=== PATIENT | male | born 1960 | race Caucasian/White ===

== ENCOUNTER 2018-09-07 07:49 | Observation (INO) ==
[2018-09-07] MEDS ORDERED: 0.9 % Sodium Chloride 1,000 ML IVC ONE (08:06)
[2018-09-07 08:19] LABS: Basophils # 0.1 K/mcL (0.0-0.2); Basophils % 0.8 %; Eosinophils # 0.2 K/mcL (0.0-0.6); Hematocrit 51.1 % (37.5-50.1); Hemoglobin 17.3 g/dL (12.9-16.9); Immature Granulocytes % 0.1 % (0-4); Lymphocytes # 2.1 K/mcL (0.6-4.6); Lymphocytes % 28.5 %; Mean Corpuscular HGB Conc 33.9 g/dL (31.6-35.5); Mean Corpuscular Hemoglobin 30.9 pg (28.0-33.3); Mean Corpuscular Volume 91.4 fL (83.0-100.0); Mean Platelet Volume 9.6 fL (9.4-12.4); Monocytes # 0.5 K/mcL (0.0-1.3); Monocytes % 6.9 %; Neutrophils # 4.5 K/mcL (1.6-8.9); Platelet Count 254 K/mcL (140-400); Red Blood Count 5.59 M/mcL (4.19-5.50); Red Cell Distribution Width 12.1 % (11.5-14.5); Segmented Neutrophils % 60.7 %
[2018-09-07 08:38] LABS: Troponin I < 0.03 ng/mL (< 0.04)
--- NOTE | 2018-09-07 08:42 | Emergency Department Note ---
Disposition Clinical Impression: Atrial fibrillation with RVR Disposition: Admitted As Inpatient Condition: Good Forms: ED Satisfaction Letter General Adult HPI - General Chief complaint: ED Arrhythmia/Palpitations Stated complaint: Abnormal EKG Time Seen by Provider: 09/07/18 07:59 Source: patient Mode of arrival: ambulatory Limitations: no limitations Nursing Notes Reviewed: Yes Vital Signs Reviewed: Yes - History of Present Illness HPI Narrative: Patient with a history of A. fib on sotalol but no other medications presenting to the emergency department for palpitations and shortness of breath. Patient states that his sotalol has recently not been working. He has had increasing frequency of episodes of palpitations awaken him up from sleep resolve with morning sotalol. The patient's symptoms today started at 2 AM. Patient despite trying to stay hydrated was found to be in A. fib RVR at work and referred to the emergency department. He states he has tried to get an appointment with cardiology but has been unable to until October. Patient has his sotalol with him. It is approximately 8:15 and 45 minutes early compared to his normal dose. He has been advised to go ahead and take this while we observe him. A call will be placed to cardiology to further discuss the case. Pain Scale: 0 - Related Data Previous Rx's Medication Instructions Recorded Sotalol [Betapace] 80 mg PO BID #60 tablet 08/05/17 Allergies Allergy/AdvReac Type Severity Reaction Status Date / Time No Known Allergies Allergy Verified 12/04/17 10:04 Review of Systems: CONSTITUTIONAL: No weight loss, fever, chills, weakness or fatigue. HEENT: Eyes: No visual changes. Ears, Nose, Throat: No hearing loss, difficulty talking or unable to swallow. SKIN: No rash or itching. CARDIOVASCULAR: Palpitations RESPIRATORY: Shortness of breath GASTROINTESTINAL: No anorexia, nausea, vomiting or diarrhea. No abdominal pain or blood. GENITOURINARY: No burning on urination or hematuria. NEUROLOGICAL: No headache, dizziness, syncope, paralysis, ataxia, numbness or tingling in the extremities. No change in bowel or bladder control. MUSCULOSKELETAL: No muscle pain, back pain, joint pain or stiffness. All systems ED: reviewed and negative except as stated. Review of Systems: As Per HPI Past Medical History - Past Medical History Medical history: Reports: atrial fibrillation Psychiatric history: Reports: no psych history - Social History Smoking Status: Never smoker Smokeless Tobacco Status: No Alcohol use: Reports: occasionally Drug use: Reports: none Physical Exam General: Well appearing, nontoxic, no acute distress Head: Normocephalic Atraumatic Eyes: PERRL, EOMI ENT: Airway patent, no stridor Neck: supple, no meningismus Chest: Lungs clear to auscultation bilateral Cardiac: Irregular rate and rhythm Abdomen: soft, nontender, nondistended; no guarding, rebound, or tenderness to percussion Musculoskeletal: Calves symmetric, nontender, no palpable cord Skin: No rash, normal skin tone Neuro: Alert and Oriented to person, place, and time; No focal deficit - General General appearance: alert, in no apparent distress Course - Reevaluation(s) Reevaluation #1: Heart rate did slowly improve the sotalol. On reevaluation 118 rate. Improved from 150s when he arrived. Patient continues to be relatively asymptomatic. He is very pleasant. He did walk to the bathroom and back and his heart rate has now remained in the 130s. When I did discuss his case with cardiology this did state that we could use rate control medications but no other rhythm control medications. Metoprolol 5 mg 2 when necessary heart rate greater than 120 has been ordered. At this point patient's blood pressure is been stable and his case will be discussed with the hospitalist for further care. Hospitalist request Cardizem instead of metoprolol. Cardizem ordered and metoprolol canceled. This was communicated with the nursing staff. - Consultations Consultation #1: Discussed with cardiology. Patient will likely need an increase in sotalol dosing. Patient will need admitted for monitoring for this. They will consult on the patient while admitted to the hospitalist service. Consultation #2: Discussed with hospitalist. Patient accepted for admission. Vital Signs Temperature 98.7 F 09/07/18 07:52 Pulse Rate 86 09/07/18 07:52 Respiratory Rate 19 09/07/18 07:52 Blood Pressure 128/74 09/07/18 07:52 O2 Sat by Pulse Oximetry 98 09/07/18 07:52 Temperature 98.7 F 09/07/18 07:58 Pulse Rate 86 09/07/18 07:58 Respiratory Rate 19 09/07/18 07:58 Blood Pressure 128/74 09/07/18 07:58 O2 Sat by Pulse Oximetry 97 09/07/18 08:10 Oxygen Delivery Oxygen Delivery Room Air Medical Decision Making - Medical Records Medical records reviewed: Yes I reviewed the patient's medical records. - Lab Data Lab results reviewed: Yes I reviewed the patient's lab results. Result diagrams: 09/07/18 08:10 09/07/18 08:10 Lab Results 09/07/18 09/07/18 Range/Units 08:10 08:10 WBC 7.4 (4.3-11.1) K/mcL RBC 5.59 H (4.19-5.50) M/mcL Hgb 17.3 H (12.9-16.9) g/dL Hct 51.1 H (37.5-50.1) % MCV 91.4 (83.0-100.0) fL MCH 30.9 (28.0-33.3) pg MCHC 33.9 (31.6-35.5) g/dL RDW 12.1 (11.5-14.5) % Plt Count 254 (140-400) K/mcL MPV 9.6 (9.4-12.4) fL Immature Gran % 0.1 (0-4) % Seg Neutrophils % 60.7 % Lymphocytes % 28.5 % Monocytes % 6.9 % Eosinophils % 3.0 % Basophils % 0.8 % Neutrophils # 4.5 (1.6-8.9) K/mcL Lymphocytes # 2.1 (0.6-4.6) K/mcL Monocytes # 0.5 (0.0-1.3) K/mcL Eosinophils # 0.2 (0.0-0.6) K/mcL Basophils # 0.1 (0.0-0.2) K/mcL Sodium 138 (136-145) mEq/L Potassium 4.8 (3.5-5.1) mEq/L Chloride 103 (98-107) mEq/L Carbon Dioxide 26 (23-29) mEq/L BUN 15 (6-20) mg/dL Creatinine 1.01 (0.70-1.30) mg/dL Est GFR ( Amer) > 60 (> 60) Est GFR (Non-Af Amer) > 60 (> 60) BUN/Creatinine Ratio 15 (6-26) Glucose 121 H (70-105) mg/dL Calculated Osmolality 288 (280-300) Calcium 10.4 H (8.6-10.3) mg/dL Magnesium 2.1 (1.6-2.6) mg/dL Troponin I < 0.03 (< 0.04) ng/mL TSH 0.980 (0.340-5.600) mcIU/mL - Radiology Data Radiology results reviewed: Yes I reviewed the patient's radiology results. - EKG Data EKG #1 EKG attestation: Yes I reviewed and interpreted this EKG. EKG results narrative: EKG shows A. fib with a heart rate of 142. QRS 87. QTC 472. Patient has no significant ST elevations or depressions. Different from previous EKG of 08/05/17 which was sinus rhythm.
[2018-09-07 08:49] LABS: BUN/Creatinine Ratio 15 (6-26); Blood Urea Nitrogen 15 mg/dL (6-20); Calcium 10.4 mg/dL (8.6-10.3); Carbon Dioxide 26 mEq/L (23-29); Chloride 103 mEq/L (98-107); Glucose 121 mg/dL (70-105); Magnesium 2.1 mg/dL (1.6-2.6); Osmolality,Calculated 288 (280-300); Potassium 4.8 mEq/L (3.5-5.1); Sodium 138 mEq/L (136-145); eGFR For Non-African Americans > 60 (> 60)
[2018-09-07] MEDS ORDERED: *HR* Metoprolol 5 MG/5 ML VIAL IVP STA (09:34)
--- NOTE | 2018-09-07 10:04 | Internal Med History&Physical ---
Date of Encounter: 09/07/18 Time of Encounter: 10:01 Internal Medicine - H&P: HPI Chief complaint: palpitation Admitted From: Emergency Dept Plans for Post Hospital Care: Home History of present illness: Mr. Dang is a 58 year old male Patient with history of recurrent atrial fibrillation for many years. Patient seen and being followed by cardiology he is on sotalol he been having more frequent episodes of atrial fib symptoms of palpitation and some shortness of breath no chest pain has an appointment with cardiology but not until in October he been having more frequent episodes decided to come to the emergency room he was in atrial fib rate is in the 150 given some Lopressor ER discussed with cardiology will be seeing him in consultation and decide on further intervention. I discussed with ER physician Dr. Baltazar hensley since patient rate is in the 150s just by standing up. Hemodynamically he is stable no other medical problem. Patient does not smoke no drugs Past Med Surg Social Fam HX - Past Medical History Medical history: atrial fibrillation Psychiatric history: no psych history - Past Surgical History Additional surgical history: ankle surgery, hip surgery - Social History Smoking Status: Never smoker Smokeless Tobacco Status: No Alcohol use: occasionally Drug use: none - Family History Mother Living Status: Still Living Hx Family Cardiac Disorders: Yes ([place], CAD) Father Living Status: Hx Family Respiratory Disorders: Yes (Smoker) Hx Family Cancer: Yes (Mouth cancer with mets) Internal Medicine - H&P: Meds Sotalol [Betapace] 80 mg PO BID #60 tablet 08/05/17 [Rx] 3 Allergy/AdvReac Type Severity Reaction Status Date / Time No Known Allergies Allergy Verified 12/04/17 10:04 All Systems PM: A 10-system review of systems was performed and is negative for pertinent findings except as documented above in the HPI. - Constitutional Vitals: Temp Pulse Resp BP Pulse Ox 98.7 F 147 20 160/100 99 09/07/18 07:58 09/07/18 09:50 09/07/18 09:50 09/07/18 09:50 09/07/18 09:50 Exam: done - Eye Eye exam: Present: PERRL, conjuntiva pink, sclera anicteric Pupils: Present: PERRL - Neck Neck exam general surgery: Present: supple, trachea midline. Absent: lymphadenopathy - Respiratory Respiratory exam: Present: CTAB. Absent: accessory muscle use, rales, rhonchi, wheezes - Cardiovascular Cardiovascular exam: Present: irregular rhythm, +S1, +S2 - GI/Abdominal GI/Abdominal exam: Present: normal bowel sounds, soft, no peritoneal signs. Absent: distended, tenderness - Neurological Exam Neurological exam: Present: CN II-XII intact, oriented X3, no focal deficits. Absent: pronater drift, facial droop, speech deficit Internal Med - H&P Results - Labs CBC & Chem 7: 09/07/18 08:10 09/07/18 08:10 Labs: Short CBC 09/07/18 Range/Units 08:10 WBC 7.4 (4.3-11.1) K/mcL Hgb 17.3 H (12.9-16.9) g/dL Hct 51.1 H (37.5-50.1) % Plt Count 254 (140-400) K/mcL Neutrophils # 4.5 (1.6-8.9) K/mcL BMP 09/07/18 08:10 Sodium 138 Potassium 4.8 Chloride 103 Carbon Dioxide 26 BUN 15 Creatinine 1.01 Glucose 121 H Calcium 10.4 H Cardiac Enzymes 09/07/18 Range/Units 08:10 Troponin I < 0.03 (< 0.04) ng/mL - Impressions ITS Impressions Chest X-Ray 09/07/18 08:06 IMPRESSION: No acute process. D/ / Dre Suarez MD / Dre Suarez MD Interpreting Provider: Dre Suarez MD - Assessment and plan (1) Atrial fibrillation with RVR Current Visit: Yes Status: Acute Assessment and plan: Recurrent atrial fibrillation with RVR we will start him on Cardizem drip and resume sotalo Cardiology has been consulted we see him today and decide on further intervention (2) Palpitations Current Visit: No Status: Acute - Time Spent With Patient Total time spent is greater than 50% in coordination of care (as documented) at patient's floor/unit and/or counseling patient:
[2018-09-07] MEDS ORDERED: Naloxone 0.4 MG/ML INJ IVP PRN (10:12)
[2018-09-07] MEDS ORDERED: 0.9 % Sodium Chloride 1,000 ML IVC SCH (10:15)
[2018-09-07 11:14] VITALS: BP 110/78
--- NOTE | 2018-09-07 11:34 | Cardiology Consult Note ---
Addendum entered and electronically signed by Oswald Pompa MD 09/07/18 15:14: I examined this patient and my medical decision-making was reviewed with the Resident Physician. I agree with the documented findings, disposition and treatment plan as described except to the extent set forth below. A/P: Symptomatic PAF failed sotalol with resting bradycardia Discussed option w patient, he wants ablation. Discharge and set up EP fu. Thank you for the consult, Oswald Pompa MD [facility] Original Note: Date of Encounter: 09/07/18 Time of Encounter: 11:30 Assessment and Plan (1) Atrial fibrillation with RVR Current Visit: Yes Status: Acute patient has afib with rvr currently on sotalol his HR ranges from 60-150s patient was about to be started on caridzem drip but his HR was 65 when I was in the room CHADSVASC is 0 plan: increase sotalol to 160mg BID. We will give 80mg now as he took his morning dose. EKG AM Discussion w patient/family: The assessment and plan as outlined above was discussed with the patient and/or family members who expressed understanding and agreement. All questions were answered. Thank you for involving us in the care of your patient. Please call with any questions. History of Present Illness Consult date: 09/07/18 Consult reason: afib rvr Chief complaint: palpitations History of present illness: Mr. Dang is a 58 year old male with hx of atrial fibrillation presents with cc of palpitations. Patient reports he has had palpitations since high school. Last year he was diagnosed with atrial fibrillation and started on sotalol 80mg BID and follows Dr. Costa. This controlled his atrial fibrillation well for three months. However, for last nine months he has been having increasing episodes of palpitations which usually start at 9PM and are continuous until the morning. He went to work this morning with palpitations as they did not resolve and presented to ED and was found to be in afib rvr with rate 150. He denies chest pain, sob, syncope, light headedness, blurry vision. Reports he does have lots of anxiety right now. He denies fever, chills, changes in urine or bowel habits, weight gain , weight loss. Past Med Surg Social Fam HX - Past Medical History Medical history: atrial fibrillation Psychiatric history: no psych history - Past Surgical History Additional surgical history: ankle surgery, hip surgery - Social History Smoking Status: Never smoker Smokeless Tobacco Status: No Alcohol use: occasionally Drug use: none - Family History Mother Living Status: Still Living Hx Family Cardiac Disorders: Yes ([place], CAD) Father Living Status: Hx Family Respiratory Disorders: Yes (Smoker) Hx Family Cancer: Yes (Mouth cancer with mets) Maternal Grandmother Living Status: Cause of : Colon Cancer Medications and Allergies Sotalol [Betapace] 80 mg PO BID #60 tablet 08/05/17 [Rx] Allergy/AdvReac Type Severity Reaction Status Date / Time No Known Allergies Allergy Verified 12/04/17 10:04 All Systems Review: The remainder of the systems were reviewed and are negative Review of Systems: Constitutional: Denies fever, chills HEENT: Denies headache, trauma, blurry vision, eye discharge, ear pain, ear discharge neck pain, sore throat, rhinorrhea Heart:as per hpi Lungs: Denies shortness of breath cough Abdomen: Denies abdominal pain nausea vomiting diarrhea MSK: Denies back pain, falls, joint pain Kidney: Denies dysuria, hematuria Skin: Denies rash, ulcers Neuro: Denies numbness and tingling Psych:reports anxiety, denies depression Physical Examination Vital Signs, Last 4 Hours Temp Pulse Resp BP Pulse Ox 09/07/18 11:12 97.4 F L 89 18 110/78 95 09/07/18 09:50 147 20 160/100 99 09/07/18 08:10 97 09/07/18 07:58 98.7 F 86 19 128/74 98 09/07/18 07:52 98.7 F 86 19 128/74 98 General: Conversant, No Apparent Distress HEENT: Atraumatic, Normocephaly, Mucus Membranes Moist Neck: No JVD, Normal carotid pulses Cardiac: No Murmur, Other (irregularly irregular ) Lungs: Normal Breath Sounds, No Wheeze, Rales, Rhonchi Neuro: Alert and responsive, No focal deficits noted Abdomen: Soft, Non-Tender Skin: No rashes noted on visualized skin Musculoskeletal: No Chest Wall Tenderness Extremities: No Clubbing, No Cyanosis, No Edema, Normal Pulses Results 09/07/18 08:10 09/07/18 08:10 Lab Results 09/07/18 09/07/1818 08:10 08:10 08:10 WBC 7.4 Hgb 17.3 H Hct 51.1 H Plt Count 254 Sodium 138 Potassium 4.8 Chloride 103 Carbon Dioxide 26 BUN 15 Creatinine 1.01 Glucose 121 H Calcium 10.4 H Magnesium 2.1 Troponin I < 0.03 B-Natriuretic Peptide 58 TSH 0.980 Consult Discharge Plan - Plan Referrals: Karen Gil, TRANSMITTER OPERATOR [Primary Care Provider] -
--- NOTE | 2018-09-08 03:42 | Electrocardiograph Report ---
[facility] Test Date: 2018-09-07 Pat Name: Otis Dang Department: [id number] Room: 3B14 Gender: Security Infrastructure Engineer: : 1960 Requested By: Elan Fernández Order Number: [id number] Reading MD: Marshall Márquez Measurements Intervals [place] Rate: 142 P: NC: QRS: -29 QRSD: 87 T: 28 QT: 292 QTc: 472 Interpretive Statements Atrial fibrillation Electronically Signed On 09-08-2018 3:40:26 EST by Marshall Márquez
== END 2018-09-07 17:34 | disposition left against medical advice (07) ==
LOC: 3BNU 07:49 → EMEROOARM 07:49 → 3BNU 10:30
PROVIDERS: ADMIT Internal Medicine Cardiovascular Disease; ATTEND Internal Medicine Cardiovascular Disease